=== PATIENT | female | born 1970 | race Caucasian/White ===

== ENCOUNTER 2016-08-15 19:11 | Emergency (ER) | payer OTHER ==
--- NOTE | ~2016-08-15 | CT4 ---
[facility] A Service of [facility] RADIOLOGY TEXT RESULTS PATIENT: KATEY GARCIA LOCATION: SED : 70 UNIT #: [id number] AGE: [address]: Flaquito Canales MD SEX: F ORDER DR: [id number] [address] [address] [id number] E MR#: [id number] #: [id number] NAME: KATEY GARCIA : 1970 SEX: F STUDY DATE/TIME: 08/15/2016 19:33 UNIT: SED ROOM: STUDY DESCRIPTION: CT Abd and Pelv Wo Cont Attending Physician: Flaquito Canales M.D. Ordering Physician: Flaquito Canales M.D. Primary Care Physician: [facility] IMAGING REPORT This report is preliminary unless electronic signature is present. EXAM CT abdomen and pelvis without contrast DATE: 08/15/2016 19:33 HISTORY 45-year-old female kidney stones. Left flank pain for two hours. COMPARISON CT abdomen and pelvis without and with contrast 05/09/2016. PROCEDURE 3 mm noncontrast axial images through the abdomen and pelvis. Enteric contrast was not administered. The CT exam was performed with one or more of the following radiation dose reduction techniques: automatic exposure control, adjustment of mA and/or kV according to patient size, and iterative reconstruction. FINDINGS Single 2 to 3 mm left lower renal pole stone. Two 2 to 3 mm right lower renal pole stones. No right or left ureteral calculus, hydronephrosis or hydroureter is seen. Bilateral breast implants in place. Lung bases are clear. Numerous hepatic low-density lesions, larger of which are compatible with cyst, smaller, which are too small to characterize but favored to represent cysts, not thought to be significantly changed. Gallbladder is contracted. Spleen, pancreas, adrenals are normal. Tiny umbilical hernia contains only fat. The appendix is normal. Unopacified bowel within normal limits. [facility] A Service of [facility] RADIOLOGY TEXT RESULTS PATIENT: KATEY GARCIA LOCATION: SED : 70 UNIT #: [id number] AGE: [address]: Flaquito Canales MD SEX: F ORDER DR: Pelvis findings: Uterus is retroverted. Cervical nabothian cysts incidentally noted. Large calcified phleboliths in the pelvis on the left, unchanged. No free fluid or pathologic adenopathy. IMPRESSION 1. No acute findings in the abdomen pelvis to explain the patient's pain. 2. Single left, two right nonobstructing intrarenal calculi. No ureteral calculus or hydronephrosis. 3. Normal appendix. 4. Calcified pelvic phleboliths similar to 05/09/2016. 5. Numerous hepatic cysts. Dictated by... Yodit Duncan M.D. THIS IS AN ELECTRONICALLY VERIFIED REPORT Yodit Duncan M.D. at 08/16/2016 2:08 PM RASHAWN/bibiana TD: 08/16/2016 09:08 JOB #: [id number] MEDICAL IMAGING REPORT
[2016-08-15 19:08] LABS: BASOPHIL# 0.1 X10e3 (0-0.3); BASOPHIL% 0.8 % (0-2.5); EOSINOPHIL# 0.1 X10e3 (0-0.7); EOSINOPHIL% 1.1 % (0.0-7.0); HEMATOCRIT 43.2 % (35.0-45.0); HEMOGLOBIN 14.6 gm/dL (12.0-16.0); LYMPHOCYTE# 4.3 X10e3 (1.0-3.5); LYMPHOCYTE% 37.2 % (17.0-45.0); MEAN CELL VOLUME 96.2 FL (83-96); MEAN CORPUSCULAR HEMOGLOBIN 32.5 PG (28-34); MEAN CORPUSCULAR HGB CONC 33.8 g/dL (30-36); MEAN PLATELET VOLUME 7.7 FL (6.5-11.5); MONOCYTE# 1.2 X10e3 (0-1.0); MONOCYTE% 10.1 % (3.0-12.0); NEUTROPHIL# 5.9 X10e3 (1.5-7.1); NEUTROPHIL% 50.8 % (40-75); PLATELET COUNT 278 X10e3 (140-420); RED CELL DISTRIBUTION WIDTH 13.6 % (11.0-15.5); WHITE BLOOD COUNT 11.6 X10e3 (4.0-10.5)
[2016-08-15 19:09] LABS: DIFF IND NO
[~2016-08-15 19:11] MED LIST: BACTRIM DS TABL1 TA1 PO; DOXYCYCLINE HY100 M3 PO; HYDROCODON-ACE1 EAC7 PO; IBUPROFEN800 MG PO; PHENERGAN PO; PREDNISONE10 MG PO; PROMETHAZINE D118 ML PO; VICODIN 5/500 T1 TAB PO; ZOFRAN ODT4 MG/UDTAB SL
[2016-08-15 19:19] LABS: BLOOD UREA NITROGEN 11 mg/dL (9-23); BUN/CREATININE RATIO 15.71; CARBON DIOXIDE 26 mmol/L (22-31); CHLORIDE 104 mmol/L (100-111); CREATININE SERUM 0.7 mg/dL (0.6-1.4); GLOM FILT RATE Estimated ABOVE60 mL/min (>60); GLUCOSE FASTING 95 mg/dL (70-110); SODIUM 137 mmol/L (135-145)
[2016-08-15 20:18] LABS: URINE SOURCE CLEAN CATCH
[2016-08-15 20:21] LABS: URINE APPEARANCE CLEAR; URINE BLOOD TRACE-INTACT (NEG); URINE COLOR YELLOW; URINE GLUCOSE NEG (NORM); URINE KETONE NEG (NEG); URINE LEUKOCYTE ESTERASE NEG (NEG); URINE NITRATE NEG (NEG); URINE PH 6.5 (5-8); URINE PROTEIN NEG (NEG); URINE UROBILINOGEN 0.2 MG/DL (NORM)
[2016-08-15 20:23] LABS: MICRO INDICATED? YES; URINE BILIRUBIN NEG (NEG)
[2016-08-15 20:25] LABS: CULTURE INDICATED? NO; URINE BACTERIA NEG (NEG); URINE WBC 0-2 /[HPF] (0-5)
[2016-08-15 20:26] LABS: URINE MUCUS PRESENT; URINE SQUAMOUS EPITHELIAL CELL MODERATE /[HPF]
== END 2016-08-15 21:09 | disposition home or self-care (01) ==
LOC: SED 19:11
PROVIDERS: Emergency Medicine
DX: R10.9 Unspecified abdominal pain (principal); Z87.442 Personal history of urinary calculi; Z79.899 Other long term (current) drug therapy
CPT/HCPCS: 36415; 74176; 80048; 81003; 84703; 85025; 96361; 96374; 99284; J1885

== ENCOUNTER 2017-01-15 08:37 | Emergency (ER) | payer OTHER ==
[2017-01-15] MEDS ORDERED: NO MEDICATIONS (08:41)
[2017-01-15 09:30] LABS: URINE SOURCE CLEAN CATCH
[2017-01-15 09:33] LABS: URINE APPEARANCE CLEAR; URINE BILIRUBIN NEG (NEG); URINE BLOOD 2+ (NEG); URINE COLOR YELLOW; URINE GLUCOSE NEG (NORM); URINE KETONE NEG (NEG); URINE LEUKOCYTE ESTERASE 1+ (NEG); URINE NITRATE NEG (NEG); URINE PROTEIN NEG (NEG); URINE SPECIFIC GRAVITY 1.015 (1.003-1.035); URINE UROBILINOGEN 0.2 MG/DL (NORM)
[2017-01-15 09:36] LABS: MICRO INDICATED? YES
[2017-01-15 09:42] LABS: CULTURE INDICATED? YES; URINE BACTERIA 1+ (NEG); URINE RBC 0-2 /[HPF] (0-2); URINE SQUAMOUS EPITHELIAL CELL MANY /[HPF]
== END 2017-01-15 10:23 | disposition home or self-care (01) ==
LOC: SED 08:37
PROVIDERS: Emergency Medicine
DX: G44.209 Tension-type headache, unspecified, not intractable (principal); F17.200 Nicotine dependence, unspecified, uncomplicated
CPT/HCPCS: 81003; 84703; 87086; 96372; 99285; J0780; J1200

== ENCOUNTER 2017-01-17 21:44 | Emergency (ER) | payer OTHER ==
--- NOTE | ~2017-01-17 | CR72 ---
[facility] A Service of [facility] RADIOLOGY TEXT RESULTS PATIENT: KATEY GARCIA LOCATION: [place] : [birth year] UNIT #: [id number] AGE: [address]: Taylor Macdonald APRN SEX: F ORDER DR: [id number] [facility] [address] [place], [place] [address] [id number] E MR#: [id number] #: [id number] NAME: KATEY GARCIA : 1970 SEX: F STUDY DATE/TIME: 01/17/2017 22:29 UNIT: [facility] ROOM: STUDY DESCRIPTION: CR Chest Single View Portable Attending Physician: Taylor Macdonald A.P.R.N. Ordering Physician: Taylor Macdonald A.P.R.N. [facility] MED[facility] REPORT This report is preliminary unless electronic signature is present EXAM Chest x-ray, 01/17/2017 HISTORY 46-year-old female in the ED complaining of 4-day history of shortness of air and cough. TECHNIQUE AP upright chest x-ray FINDINGS The exam shows mild hazy infiltrate in the right lung base, new since prior studies, compatible with likely infectious pneumonitis. Remaining portions of both lungs are clear. No pleural effusion. Heart size and pulmonary vascularity are normal. IMPRESSION Right lung base infiltrate. Dictated by... Pablo Avendano M.D. THIS IS AN ELECTRONICALLY VERIFIED REPORT Pablo Avendano M.D. at 01/18/2017 10:02 PM [place] TD: 01/18/2017 10:13 JOB #: [id number] MEDICAL IMAGING REPORT Page 1 of 1 COPY
[~2017-01-17 21:44] MED LIST changes: +NO MEDICATIONS
== END 2017-01-17 23:10 | disposition home or self-care (01) ==
LOC: CFTX 21:44 → CED 21:44 → CFTX 22:21
DX: J18.9 Pneumonia, unspecified organism (principal); F17.210 Nicotine dependence, cigarettes, uncomplicated
CPT/HCPCS: 71010; 87651; 94640; 99283